=== PATIENT | female | born 1980 | race Caucasian/White ===

== ENCOUNTER 2016-12-19 15:21 | Outpatient (CLI) | payer OTHER ==
--- NOTE | 2016-12-19 18:31 | RAD ---
RIGHT HAND: 12/19/16 Three views obtained. HISTORY: Pain and swelling to the right fifth metacarpal region. There is cystic changes seen in the waist of the scaphoid. Interosseous ganglion would be suspected. The metacarpals and phalanges appear intact with no acute fracture identified. MCP and IP joints are unremarkable. IMPRESSION: 1. Abnormal cystic changes in the scaphoid. If there is unexplained wrist pain at the scaphoid, suggest further evaluation with MRI. 2. No fracture or acute abnormality. POS: [facility]
== END 2016-12-19 15:22 | disposition home or self-care (01) ==
LOC: NAV RAD 15:21
PROVIDERS: ATTEND Family Medicine
DX: M79.641 Pain in right hand (principal)

== ENCOUNTER 2017-07-09 17:09 | Outpatient (CLI) | payer OTHER ==
--- NOTE | 2017-07-09 20:14 | RAD ---
THREE VIEWS RIGHT HAND: 07/09/17 HISTORY: Dropped couch on right hand with right hand pain. AP, lateral and oblique views right hand is obtained. Comparison made to a previous radiograph right hand from three days earlier from 07/06/17. FINDINGS/IMPRESSION: Again, cystic changes seen in the scaphoid unchanged since previous comparison radiograph from December 2016. There continues to be no evidence of right hand fractures or bony lesions. Right hand radiograph is unchanged since previous radiograph from three days earlier. POS: [facility]
== END 2017-07-09 17:10 | disposition home or self-care (01) ==
LOC: NAV RAD 17:09
PROVIDERS: ATTEND Family Medicine
DX: M79.641 Pain in right hand (principal)

== ENCOUNTER 2017-12-23 15:22 | Emergency (ER) | payer OTHER ==
[~2017-12-23 15:22] MED LIST: Iopamidol 370 76% 100 ML VIAL ONE
[2017-12-23] MEDS ORDERED: Ondansetron HCl/PF 4 MG/2 ML Vial ONE (15:45)
[2017-12-23] MEDS ORDERED: Sodium Chloride 0.9% 1,000 ML ONE (15:45)
[2017-12-23 15:54] LABS: #Basophils 0.1 thou/uL (0.0-0.2); #Eosinphils 0.6 thou/uL (0.0-0.7); #Lymphocytes 1.5 thou/uL (1.20-3.40); #Monocytes 0.7 thou/uL (0.11-0.59); #Neutrophils 6.8 thou/uL (1.40-6.50); %Basophils 1.3 % (0.0-1.0); %Eosinophils 6.2 % (0.0-10.0); %Lymphocytes 15.8 % (21.0-51.0); %Monocytes 7.6 % (0.0-10.0); %Neutrophils 69.3 % (42.0-75.0); Mean Corpuscular HGB CONC 33.6 g/dL (32.0-36.0); Mean Corpuscular Hemoglobin 29.5 pg (27.0-31.0); Mean Corpuscular Volume 87.9 fl (81.0-99.0); Mean Platelet Volume 7.7 fL (7.4-10.4); Platelet Count 342 thou/uL (130-400); Red Blood Cell (RBC) Count 3.74 mill/uL (4.20-5.40); White Blood Cell (WBC) Count 9.8 thou/uL (4.8-10.8)
[2017-12-23 15:59] LABS: Bilirubin Negative (Negative); Blood, Urine Negative (Negative); Clarity Clear (Clear); Glucose, Urine (Dipstick) Negative (Negative); Leukocyte Negative (Negative); Nitrite Negative (Negative); Protein, Urine (Dipstick) Negative (Neg-Trace); pH, Urine 8.5 (5.0-9.0)
[2017-12-23 16:01] LABS: Pregnancy Test - Urine (BHCG) Negative (Negative); Pregu Control Background? CLEAR/WHITE (CLR/WHITE); Pregu Control Bar Appear? YES (CONTROL BAR)
[2017-12-23 16:09] LABS: ALT (SGPT) 14 U/L (8-55); AST (SGOT) 11 U/L (5-34); Albumin 3.9 g/dL (3.5-5.0); Alkaline Phosphatase 55 U/L (40-150); Anion Gap 12 mmol/L (10-20); BUN (Urea Nitrogen) 10 mg/dL (7.0-18.7); Bilirubin, Total 0.6 mg/dL (0.2-1.2); Calc. Creatinine Clearance 0 mL/min (70-130); Calcium 9.4 mg/dL (7.8-10.44); Carbon Dioxide 26 mmol/L (22-29); Chloride 105 mmol/L (98-107); Estimated GFR-MDRD 90; Globulin 2.9 g/dL (2.4-3.5); Glucose 91 mg/dL (70-105); Potassium 3.5 mmol/L (3.5-5.1); Protein, Total 6.8 g/dL (6.0-8.3); Sodium 139 mmol/L (136-145)
[2017-12-23] MEDS ORDERED: Fentanyl 100 MCG/2 ML VIAL ONE (18:18)
--- NOTE | 2017-12-23 20:32 | CT ---
ABDOMEN CT WITH CONTRAST PELVIC CT WITH CONTRAST 12/23/17 HISTORY: Right lower quadrant pain. Evaluate for appendicitis. COMPARISON: 12/05/17 TECHNIQUE: Abdomen and pelvic CT performed with IV contrast. Coronal reformatted images are submitted for interp retation. FINDINGS: ABDOMEN CT: Calcified granuloma of the lingula. Normal heart size. No pericardial effusion. The visualized aorta has a normal caliber. Portal vein is patent. Gallbladder is unremarkable. Appropriate enhancement of the solid organs. Bila terally, no obstructive uropathy. No gastrohepatic, retrocrural, or periportal lymphadenopathy. Gastric mucosa, duodenum and multiple normal caliber small bowel loops are present. No evidence of monroe wel obstruction. There is mild inflammatory change at the cecal apex. Limited evaluation of the appen lila due to inadequate oral contrast opacification. There does appear to be a normal caliber tubular s tructure emanating from the cecal apex. Segments of this tubular structure appear to have air attenua tion suggesting a normal caliber appendix (axial image #63, coronal image #61). There is some pericol onic fluid and fat stranding at the cecal apex and proximal to mid cecum. The remainder of the colon demonstrates fecal material. PELVIC CT: There is enlarge heterogenous uterus with solid attenuation masses suggesting uterine leiomyomas. The left adnexa demonstrates a dominant follicle measuring 2.1 cm. There is stranding of the right colon fat and mesentery. The possibility of a ruptured right ovarian cyst is raised. There is complex flui d in the right adnexa. Correlate for a recent ruptured right ovarian cyst. Urinary bladder is unremar kable. There is no pelvic mass, lymphadenopathy or free air. 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 IMPRESSION: Inflammatory changes in the right lower quadrant and right adnexa. These inflammatory changes appear to be centered in the right adnexa suggesting a ruptured complex right ovarian cyst with resultant re active changes in the right hemipelvis and right lower quadrant. there is mild mucosal thickening an d pericolonic fat stranding at the cecal apex and proximal cecum which may be reactive. Evaluation of the appendix is limited. Segments of what appears to be normal caliber appendix is noted. Clinical c orrelation with general surgical as well as PSYCHOLOGIST COUNSELING consultation is recommended. Additional imaging is re commended based upon physical exam. POS: [facility]
== END 2017-12-23 19:29 | disposition short-term general hospital (02) ==
LOC: NAV ERS 15:22
DX: R10.31 Right lower quadrant pain (principal); I38 Endocarditis, valve unspecified; G43.909 Migraine, unspecified, not intractable, without status migrainosus; I49.9 Cardiac arrhythmia, unspecified; F32.9 Major depressive disorder, single episode, unspecified; F41.9 Anxiety disorder, unspecified; Z79.899 Other long term (current) drug therapy
CPT/HCPCS: 74177; 80053; 81003; 81025; 85025; 87086; 96361; 96374; 96375; J2405; J3010; J7050

== ENCOUNTER 2018-01-06 16:44 | Outpatient (CLI) | payer OTHER ==
--- NOTE | 2018-01-06 17:39 | RAD ---
THREE VIEWS CERVICAL SPINE: 01/06/18 HISTORY: Neuralgia. COMPARISON: None. FINDINGS: In the AP projection, no malalignment. No significant degenerative change of the facets. On the open mouth projection, the tip of the odontoid process is obscured. Lateral masses of C1 and C2 articulat e appropriately. Predental space is normal. No prevertebral soft tissue swelling. Cervical spine vert ebral body height is maintained. No fracture. Disc space heights are preserved. IMPRESSION: Unremarkable cervical spine radiograph series. POS: [facility]
== END 2018-01-06 16:45 | disposition home or self-care (01) ==
LOC: NAV ERS 16:44 → NAV RAD 16:45
PROVIDERS: ATTEND Family Medicine
DX: G58.8 Other specified mononeuropathies (principal)
CPT/HCPCS: 72040

== ENCOUNTER 2021-07-03 14:42 | Outpatient (CLI) | payer OTHER | END 2021-07-03 14:43 | disposition home or self-care (01) | LOC: NAV RAD 14:42 | PROVIDERS: ATTEND Family Medicine | DX: M54.16 Radiculopathy, lumbar region (principal); M25.561 Pain in right knee | CPT/HCPCS: 72100 ==

== ENCOUNTER 2024-03-04 14:33 | Outpatient (CLI) | payer BC | END 2024-03-04 14:34 | disposition home or self-care (01) | LOC: NAV RAD 14:33 | PROVIDERS: ATTEND Family Medicine | DX: R06.02 Shortness of breath (principal) | CPT/HCPCS: 71046 ==

== ENCOUNTER 2024-03-10 13:43 | Outpatient (CLI) | payer BC | END 2024-03-10 13:44 | disposition home or self-care (01) | LOC: NAV RAD 13:43 | PROVIDERS: ATTEND Nurse Practitioner Family | DX: J06.9 Acute upper respiratory infection, unspecified (principal); R05.1 Acute cough; J18.1 Lobar pneumonia, unspecified organism | CPT/HCPCS: 71046 ==

== ENCOUNTER 2024-12-29 15:06 | Outpatient (CLI) | payer BC | END 2024-12-29 15:07 | disposition home or self-care (01) | LOC: NAV RAD 15:06 | PROVIDERS: ATTEND Student in an Organized Health Care Education/Training Program | DX: M25.562 Pain in left knee (principal) ==

== ENCOUNTER 2025-08-29 15:50 | Emergency (ER) | payer OTHER ==
[2025-08-29] MEDS ORDERED: diphenhydrAMINE 50 MG/ML VIAL ONE (16:22)
[2025-08-29 16:37] LABS: ALT (SGPT) 21 U/L (Less than 34); AST (SGOT) 27 U/L (11-34); Albumin 3.8 g/dL (3.1-4.5); Alkaline Phosphatase 94 U/L (40-110); Anion Gap 16 mmol/L (10-20); BUN (Urea Nitrogen) 12 mg/dL (7.0-18.7); Bilirubin, Total 0.3 mg/dL (0.3-1.2); Calc. Creatinine Clearance 0 mL/min (70-130); Calcium 9.4 mg/dL (7.8-10.44); Carbon Dioxide 24 mmol/L (22-29); Chloride 104 mmol/L (98-107); Globulin 3.5 g/dL (2.4-3.5); Glucose 84 mg/dL (70-105); Lipase 27 U/L (8-78); Potassium 3.7 mmol/L (3.5-5.1); Sodium 140 mmol/L (136-145)
[2025-08-29 16:42] LABS: Hematocrit 41.8 % (36.0-47.0); Hemoglobin 14.0 g/dL (12.0-16.0); MDiff Complete? YES; Mean Corpuscular Hemoglobin 28.6 pg (27.0-31.0); Mean Corpuscular Volume 85.3 fl (78.0-98.0); Platelet Count 459 10x3/uL (130-400); Red Blood Cell (RBC) Count 4.91 mill/uL (4.20-5.40); White Blood Cell (WBC) Count 7.8 10x3/uL (4.8-10.8)
[2025-08-29 18:27] LABS: Glucose, Urine (Dipstick) Negative (Negative); Leukocyte Large (Negative); Protein, Urine (Dipstick) Negative (Neg-Trace); Specific Gravity, Urine Less/Equal 1.005 (1.005-1.030)
[2025-08-29 18:30] LABS: CAUTI Indications for Culture Pelvic or flank pain; WBC/HPF 0-3 HPF (0-3)
[2025-08-29 18:31] LABS: Urine Culture Reflex No No
== END 2025-08-29 19:12 | disposition home or self-care (01) ==
LOC: NAV ERS 15:50
DX: R11.2 Nausea with vomiting, unspecified (principal)
CPT/HCPCS: 74177; 80053; 81001; 83690; 85025; 93005; 96361; 96374; 96375; J1200; J2919; J7030